=== PATIENT | male | born 1980 | race Caucasian/White ===

== ENCOUNTER → 2018-04-10 | Outpatient (CLI) | payer OTHER ==
[~2018-04-10] MED LIST: BACTRIM DS 8001 TA1 PO; CLINDAMYCIN150 MG PO; CYCLOBENZAPRINE10 MG PO; ELIMITE5% TP; FLEXERIL10 MG PO; IBU800 MG PO; KEFLEX500 MG PO; MOTRIN800 MG PO; NKHM; NO DAILY MEDS; TRAMADOL HCL50 MG PO; VICODIN 5-3001 EACH PO; VICODIN 5/500 505 MG PO; VICODIN ES 7501 TAB PO
[2018-04-10 12:55] LABS: EOS # 0.1 10*3/uL (0.0-0.4); EOS % 3.1 % (1.0-4.0); HEMATOCRIT 45.5 % (42.0-52.0); HEMOGLOBIN 15.5 g/dl (14.0-18.0); LYMPH # 1.6 10*3/uL (1.3-4.4); LYMPH % 37.3 % (27.0-41.0); MEAN CELL VOLUME 103.2 fl (80.0-94.0); MEAN CORPUSCULAR HGB 35.1 pg (27.0-31.0); MEAN CORPUSCULAR HGB CONC 34.1 g/dl (33.0-37.0); MEAN PLATELET VOLUME 8.9 fl (9.6-12.3); MONO # 0.4 10*3/uL (0.1-1.0); MONO % 9.1 % (3.0-9.0); NEUT # 2.1 10*3/uL (2.3-7.9); NEUT % 49.3 % (47.0-73.0); PLATELET COUNT AUTOMATED 201 10*3/uL (130-400); RED BLOOD COUNT 4.41 10*6/uL (4.50-5.90); RED CELL DISTRI WIDTH 11.7 % (0-14.5); WHITE BLOOD COUNT 4.2 10*3/uL (4.8-10.8)
[2018-04-10 13:27] LABS: ALBUMIN 3.6 gm/dl (3.1-4.5); ALKALINE PHOSPHATASE 112 U/L (45-117); BUN 3 mg/dl (7-24); CHLORIDE 108 mmol/L (98-107); CREATININE 0.73 mg/dL (0.70-1.30); POTASSIUM 4.7 mmol/L (3.5-5.1); SGOT/AST 118 IU/L (3-35); SODIUM 144 mmol/L (136-145); TOTAL PROTEIN 7.3 gm/dL (6.4-8.2)
[2018-04-10 13:35] LABS: SGPT/ALT 79 U/L (12-78)
[2018-04-12 05:12] LABS: HEPATITIS B SURFACE AG Negative (Negative); HEPATITIS C VIRUS ANTIBODY <0.1 s/co (0.0-0.9)
== END | disposition home or self-care (01) ==
LOC: LAB 12:31
PROVIDERS: Nurse Practitioner Primary Care
DX: F10.20 Alcohol dependence, uncomplicated (principal); R03.0 Elevated blood-pressure reading, without diagnosis of hypertension

== ENCOUNTER 2018-04-19 09:16 | Emergency (ER) | payer OTHER ==
[~2018-04-19] VITALS: Ht 187.9 cm; Wt 80.7 kg
[2018-04-19] MEDS ORDERED: NAPROSYN500 MG PO (11:07)
[2018-04-19] MEDS ORDERED: NORCO 5-325 TA1 EACH PO (11:07)
== END 2018-04-19 11:11 | disposition home or self-care (01) ==
LOC: ED 09:16
DX: S42.034A Nondisplaced fracture of lateral end of right clavicle, initial encounter for closed fracture (principal); R03.0 Elevated blood-pressure reading, without diagnosis of hypertension; W23.0XXA Caught, crushed, jammed, or pinched between moving objects, initial encounter; Y93.89 Activity, other specified; Y92.89 Other specified places as the place of occurrence of the external cause; Y99.9 Unspecified external cause status

== ENCOUNTER → 2018-04-24 | Outpatient (CLI) | payer OTHER ==
[~2018-04-24] MED LIST changes: +NAPROSYN500 MG PO; +NORCO 5-325 TA1 EACH PO
== END | disposition home or self-care (01) ==
LOC: RAD 14:24
DX: M25.511 Pain in right shoulder (principal)

== ENCOUNTER → 2018-05-16 | Outpatient (CLI) | payer OTHER | END | disposition home or self-care (01) | LOC: RAD 12:39 | DX: Z47.89 Encounter for other orthopedic aftercare (principal); S42.001D Fracture of unspecified part of right clavicle, subsequent encounter for fracture with routine healing; X58.XXXD Exposure to other specified factors, subsequent encounter ==

== ENCOUNTER 2020-08-19 09:05 | Inpatient (IN) | payer SELFPAY ==
[~2020-08-19] VITALS: Ht 185.4 cm; Wt 90.8 kg
[2020-08-19 09:16] VITALS: BP 135/98
[2020-08-19 10:02] LABS: BASO % 0.3 % (0.0-1.0); EOS # 0.2 10*3/uL (0.0-0.4); EOS % 1.9 % (1.0-4.0); HEMATOCRIT 43.8 % (42.0-52.0); LYMPH # 1.5 10*3/uL (1.3-4.4); LYMPH % 16.4 % (27.0-41.0); MEAN CORPUSCULAR HGB 34.2 pg (27.0-31.0); MEAN CORPUSCULAR HGB CONC 34.2 g/dl (33.0-37.0); MONO # 0.7 10*3/uL (0.1-1.0); MONO % 8.3 % (3.0-9.0); NEUT # 6.5 10*3/uL (2.3-7.9); PLATELET COUNT AUTOMATED 206 10*3/uL (130-400); RED BLOOD COUNT 4.38 10*6/uL (4.50-5.90); RED CELL DISTRI WIDTH 11.8 % (0-14.5); WHITE BLOOD COUNT 8.9 10*3/uL (4.8-10.8)
[2020-08-19 10:15] LABS: ACT PARTIAL THROMBO TIME 30.5 SECONDS (20.0-32.1); INTERNATIONAL NORM RATIO 0.9 (2.0-3.5)
[2020-08-19 10:16] LABS: ALBUMIN 3.6 gm/dl (3.1-4.5); ALKALINE PHOSPHATASE 109 U/L (45-117); BUN 7 mg/dl (7-24); CHLORIDE 108 mmol/L (98-107); CREATININE 0.82 mg/dL (0.70-1.30); LIPASE 33 U/L (73-393); POTASSIUM 3.4 mmol/L (3.5-5.1); SGOT/AST 22 IU/L (3-35); SGPT/ALT 35 U/L (12-78); SODIUM 137 mmol/L (136-145); TOTAL PROTEIN 7.5 gm/dL (6.4-8.2)
--- NOTE | 2020-08-19 13:45 | NUR ---
MS Time: 1344 A 40 year old MALE admitted to 5E under services of KENNETH SAMAYOA DO Pt. arrived via ambulatory from ER. Chief complaint: ABD PAIN. GOPI [place].
--- NOTE | 2020-08-19 13:52 | NUR ---
100MCG OF FENTANYL GIVEN TO GOPI BEAVER UPON PATIENT ARRIVAL TO THE FLOOR. REPORT GIVEN TO GOPI BEAVER.
--- NOTE | 2020-08-19 13:52 | NUR ---
IV FENTANYL GIVEN PER ORDER FOR C/O LLQ PAIN. RATES PAIN 06/28. WILL MONITOR EFFECTIVENESS.
[2020-08-19 14:12] VITALS: BP 158/100
--- NOTE | 2020-08-19 14:22 | NUR ---
NOTIFIED REGARDING ELEVATED BP. AWAITING PHYSICIAN ORDERS.
--- NOTE | 2020-08-19 14:35 | NUR ---
NOTIFIED OF CONSULT.
--- NOTE | 2020-08-19 14:52 | NUR ---
PAIN BEING RELIEVED PER PT. WILL CONTINUE TO MONITOR.
[2020-08-19 16:00] VITALS: BP 156/98
--- NOTE | 2020-08-19 17:20 | NUR ---
PT MEDICATED WITH PO NORCO PER PRN ORDER FOR C/O LLQ PAIN. RATES PAIN 04/28. WILL MONITOR EFFECTIVENESS.
--- NOTE | 2020-08-19 18:20 | NUR ---
NORCO RELIEVING PAIN. PT TOLERATED SOFT DIET WITHOUT ANY DIFFICULTY. WILL CONTINUE TO MONITOR. CALL LIGHT WITHIN REACH.
--- NOTE | 2020-08-19 19:57 | NUR ---
PT SEEN AND ASSESSED. PT STATES HE IS HAVING PAIN TO HIS LLQ 5/10 AND AT THIS TIME DOES NOT REQUIRE MEDICATION. REVIEWED MEDICATIONS AND PLAN OF CARE. PT VERBALIZES UNDERSTANDING AND STATES HE HAS NO QUESTIONS REGARDING CARE AT THIS TIME. WILL CONT TO FOLLOW UP.
[2020-08-19 20:00] VITALS: BP 141/104
[2020-08-19 21:30] VITALS: BP 130/80
--- NOTE | 2020-08-19 21:30 | NUR ---
PT REQUESTING PAIN MEDICATION FOR LLQ PAIN 05/28. PRN PAIN MEDICATION ADMINISTERED. PT INSTRUCTED ON NON PHARMACOLOGICAL MEASURES AND VERBALIZES UNDERSTANDING OF EDUCATION. WILL REASSESS.
--- NOTE | 2020-08-19 22:30 | NUR ---
PT RESTING QUIETLY IN BED. PT STATES PAIN IS BETTER CONTROLLED AND RATES PAIN TO LLQ 4/10 AND IS TOLERABLE. WILL CONTINUE TO REASSESS.
[2020-08-20] VITALS: BP 130/92
--- NOTE | 2020-08-20 04:58 | NUR ---
PT RESTING QUIETLY IN BED WITH EYES CLOSED. PT GIVEN SCHEDULED ATIVAN ORDERED. AT PRESENT PT DENIES ANY C/O PAIN AT THIS TIME,
--- NOTE | 2020-08-20 05:47 | NUR ---
PT REQUEST FOR PRN PAIN MEDICATION FOR PAIN RATING 8/10 TO LLQ. MEDICATION GIVEN. WILL REASSESS.
[2020-08-20 06:27] LABS: BASO % 0.4 % (0.0-1.0); EOS # 0.2 10*3/uL (0.0-0.4); EOS % 3.8 % (1.0-4.0); HEMATOCRIT 37.6 % (42.0-52.0); LYMPH # 1.1 10*3/uL (1.3-4.4); LYMPH % 21.2 % (27.0-41.0); MEAN CORPUSCULAR HGB 34.5 pg (27.0-31.0); MEAN CORPUSCULAR HGB CONC 33.5 g/dl (33.0-37.0); MEAN PLATELET VOLUME 9.4 fl (9.6-12.3); MONO # 0.5 10*3/uL (0.1-1.0); MONO % 8.7 % (3.0-9.0); NEUT # 3.4 10*3/uL (2.3-7.9); NEUT % 65.5 % (47.0-73.0); PLATELET COUNT AUTOMATED 172 10*3/uL (130-400); RED BLOOD COUNT 3.65 10*6/uL (4.50-5.90); RED CELL DISTRI WIDTH 11.8 % (0-14.5); WHITE BLOOD COUNT 5.2 10*3/uL (4.8-10.8)
[2020-08-20 07:00] LABS: ALBUMIN 2.8 gm/dl (3.1-4.5); BUN 5 mg/dl (7-24); CHLORIDE 114 mmol/L (98-107); CHOLESTEROL 168 mg/dL (<200); CREATININE 0.77 mg/dL (0.70-1.30); POTASSIUM 3.6 mmol/L (3.5-5.1); SGOT/AST 20 IU/L (3-35); SGPT/ALT 23 U/L (12-78); SODIUM 143 mmol/L (136-145); TOTAL PROTEIN 6.3 gm/dL (6.4-8.2); TRIGLYCERIDES 141 mg/dl (<150); VLDL CHOLESTEROL 28 mg/dL (6-40)
[2020-08-20 07:07] LABS: ALKALINE PHOSPHATASE 80 U/L (45-117); HDL CHOLESTEROL 52 mg/dl (40-60); LDL CHOLESTEROL 88 mg/dL (9-159)
[2020-08-20 08:00] VITALS: BP 140/100
--- NOTE | 2020-08-20 10:43 | NUR ---
PT C/O 6/10 L SIDE ABD PAIN AT THIS TIME AND REQUESTING MEDICATION. MEDICATED WITH NORCO PER ORDER, WILL MONITOR FOR EFFECTIVENESS.
--- NOTE | 2020-08-20 11:00 | NUR ---
Discharge instructions reviewed with patient/family. Patient receptive and verbalizes understanding. Follow-up care arranged. Written instructions given to patient/family. Pt ambulatory off floor. Belongings obtained from security. Patient picked up by [facility] and transported to their facility. ARIANNA BARRIENTOS
[2020-08-20] MEDS ORDERED: FLAGYL500 MG PO (11:37)
[2020-08-20] MEDS ORDERED: CIPRO500 MG PO (11:37)
--- NOTE | 2020-08-20 12:05 | NUR ---
Photostat Operator in to talk to patient. Patient states lives at HOME with DENI. There are 14 steps in the home. Physician: STEPHEN BARRON [facility]acy: [facility] Home health services: NON Patient's level of ADLs: INDEPENDENT Patient has working utilities: YES DME: NONE Follow-up physician's appointment after d/c: WILL BE MADE BY HOSPITALIST NURSE DIRECTOR ON DISCHARGE Does patient want to access PORTAL?: NO Discharge plan PT LIVES AT HOME WITH HIS FIANCE AND IS INDEPENDENT IN HIS CARE. DENIES HE WILL HAVE ANY NEEDS ON DISCHARGE. PLANS TO RETURN HOME WHEN MEDICALLY STABLE. WILL CONTINUE TO FOLLOW. STATES HE WILL HAVE A RIDE HOME.. RINA JAMES
[2020-08-20] MEDS ORDERED: METAMUCIL PACK3.4 GM PO (12:12)
[2020-08-20] MEDS ORDERED: COLACE100 MG PO (12:12)
[2020-08-20] MEDS ORDERED: NORVASC5 MG PO (12:14)
[2020-08-20 12:24] VITALS: BP 136/88
[2020-08-20] MEDS ORDERED: NORCO 5-325 TA1 EACH PO ×2 (12:30→12:38)
--- NOTE | 2020-08-20 13:30 | NUR ---
Discharge instructions reviewed with patient/family. Patient receptive and verbalizes understanding. Follow-up care arranged. Written instructions given to patient/family. [place] DISCONTINUED. PRESCRIPTION GIVEN. PT AMBULATORY OFF FLOOR. ARIANNA BARRIENTOS
== END 2020-08-20 13:30 | disposition home or self-care (01) | DRG 379 ==
LOC: ED 09:05 → 5E 12:37 → EDHOLD 12:37 → 5E 12:42
PROVIDERS: Emergency Medicine; Internal Medicine; ADMIT Internal Medicine; ATTEND Internal Medicine
DX: K57.33 Diverticulitis of large intestine without perforation or abscess with bleeding (principal); K76.0 Fatty (change of) liver, not elsewhere classified; F10.20 Alcohol dependence, uncomplicated; E87.6 Hypokalemia; F17.210 Nicotine dependence, cigarettes, uncomplicated; R03.0 Elevated blood-pressure reading, without diagnosis of hypertension; E87.8 Other disorders of electrolyte and fluid balance, not elsewhere classified; R73.9 Hyperglycemia, unspecified; E80.6 Other disorders of bilirubin metabolism; E66.3 Overweight; Z83.3 Family history of diabetes mellitus; Z68.26 Body mass index [BMI] 26.0-26.9, adult

== ENCOUNTER 2020-11-12 14:14 | Inpatient (IN) | payer OTHER ==
[~2020-11-12] VITALS: Ht 185.4 cm; Wt 99.4 kg
[~2020-11-12 14:14] MED LIST changes: +CIPRO500 MG PO; +COLACE100 MG PO; +FLAGYL500 MG PO; +METAMUCIL PACK3.4 GM PO; +NORVASC5 MG PO
[2020-11-12 14:23] VITALS: BP 145/102
[2020-11-12 15:00] LABS: BASO % 0.4 % (0.0-1.0); EOS # 0.2 10*3/uL (0.0-0.4); EOS % 2.8 % (1.0-4.0); HEMATOCRIT 40.4 % (42.0-52.0); LYMPH # 1.4 10*3/uL (1.3-4.4); LYMPH % 16.6 % (27.0-41.0); MEAN CELL VOLUME 98.8 fl (80.0-94.0); MEAN CORPUSCULAR HGB 33.5 pg (27.0-31.0); MEAN CORPUSCULAR HGB CONC 33.9 g/dl (33.0-37.0); MONO # 0.6 10*3/uL (0.1-1.0); MONO % 7.4 % (3.0-9.0); NEUT % 72.6 % (47.0-73.0); PLATELET COUNT AUTOMATED 232 10*3/uL (130-400); RED BLOOD COUNT 4.09 10*6/uL (4.50-5.90); RED CELL DISTRI WIDTH 12.6 % (0-14.5); WHITE BLOOD COUNT 8.3 10*3/uL (4.8-10.8)
[2020-11-12 15:13] LABS: ACT PARTIAL THROMBO TIME 30.9 SECONDS (20.0-32.1)
[2020-11-12 15:17] LABS: ALBUMIN 3.2 gm/dl (3.1-4.5); ALKALINE PHOSPHATASE 125 U/L (45-117); BUN 7 mg/dl (7-24); CHLORIDE 108 mmol/L (98-107); CREATININE 0.88 mg/dL (0.70-1.30); LIPASE 55 U/L (73-393); POTASSIUM 3.5 mmol/L (3.5-5.1); SGOT/AST 16 IU/L (3-35); SGPT/ALT 22 U/L (12-78); SODIUM 139 mmol/L (136-145); TOTAL PROTEIN 7.4 gm/dL (6.4-8.2)
--- NOTE | 2020-11-12 15:28 | NUR ---
PT STATED HE HAS HAD MINIMAL RELIEF SINCE GETTING PAIN MEDICATION. WILL CONTINUE TO MONITOR.
[2020-11-12 15:32] LABS: BILIRUBIN Negative (Negative); BLOOD Trace-Intact (Negative); CLARITY Cloudy (Clear); COLOR Yellow (Yellow); GLUCOSE Negative (Negative); KETONE Trace (Negative); LEUKO ESTERASE Negative (Negative); NITRITE Negative (Negative); SPECIFIC GRAVITY 1.025 (1.001-1.030)
[2020-11-12 15:44] LABS: BACTERIA TRACE; EPITHELIAL CELLS 0-2; MUCOUS TRACE; WBC 0-2 wbc/hpf (0-5)
[2020-11-12 15:49] VITALS: BP 140/93
--- NOTE | 2020-11-12 16:02 | NUR ---
I.V INFILTRATED, STARTED A NEW ONE.
[2020-11-12 16:13] VITALS: BP 150/96
--- NOTE | 2020-11-12 17:04 | NUR ---
PT STATED THAT HIS PAIN WAS BETTER. NO CUURENT COMPLAINTS.
--- NOTE | 2020-11-12 18:34 | NUR ---
PT STATED PAIN LEVEL WAS BETTER.
--- NOTE | 2020-11-12 20:40 | NUR ---
PATIENT MEDICATED PER EMAR FOR PAIN. CONT PULSE OX IN PLACE.
[2020-11-12 20:54] VITALS: BP 148/70
[2020-11-12 21:04] VITALS: BP 140/97
--- NOTE | 2020-11-12 21:06 | NUR ---
PT STATED PAIN IS GOOD, NO OTHER COMPLAINTS AT THIS TIME.
[2020-11-12 21:50] VITALS: BP 140/92
--- NOTE | 2020-11-12 21:50 | NUR ---
A 40, admitted to , under the services of ANDREY De La Rosa DO with a diagnosis of HEMATURIA, GI BLEED, COLITIS. Chief complaint is ABDOMINAL PAIN. Patient arrived via wheel chair from ER. Monitor applied. Initial assessment completed. Vital signs taken and recorded. ANDREY DE LA ROSA DO notified of admission to the unit. Orders received. See assessment for past medical history, medications and allergies. Patient and/or family oriented to unit. [facility] visitation policy reviewed. Clothing/patient valuable form completed. ZARIA ECHOLS
--- NOTE | 2020-11-12 22:34 | NUR ---
PT GIVEN NORCO WITH A SIP OF WATER, PER DR ORDERS, FOR C/O ABDOMINAL PAIN. WILL MONITOR FOR EFFECTIVENESS. CALL LIGHT IN REACH.
--- NOTE | 2020-11-12 23:34 | NUR ---
GELY EFFECTIVE PER PT.
[2020-11-13] VITALS: BP 126/76
--- NOTE | 2020-11-13 00:43 | NUR ---
PT GIVEN MORPHINE 2 MG VIA IVP FOR C/O ABDOMINAL PAIN. RATES PAIN 8/10. WILL MONITOR FOR EFFECTIVENESS. CALL LIGHT IN REACH.
--- NOTE | 2020-11-13 05:24 | NUR ---
PT GIVEN MORPHINE 2 MG VIA IVP AT THIS TIME FOR C/O PAIN TO ABDOMEN. WILL MONITOR FOR EFFECTIVENESS. CALL LIGHT IN REACH.
--- NOTE | 2020-11-13 06:24 | NUR ---
MORPHINE EFFECTIVE PER PT.
[2020-11-13 07:24] LABS: BASO % 0.3 % (0.0-1.0); EOS # 0.3 10*3/uL (0.0-0.4); EOS % 3.7 % (1.0-4.0); LYMPH # 1.2 10*3/uL (1.3-4.4); MEAN CELL VOLUME 101.3 fl (80.0-94.0); MEAN CORPUSCULAR HGB 33.4 pg (27.0-31.0); MEAN PLATELET VOLUME 9.2 fl (9.6-12.3); MONO # 0.5 10*3/uL (0.1-1.0); MONO % 7.2 % (3.0-9.0); NEUT # 5.4 10*3/uL (2.3-7.9); NEUT % 72.5 % (47.0-73.0); PLATELET COUNT AUTOMATED 203 10*3/uL (130-400); RED BLOOD COUNT 3.95 10*6/uL (4.50-5.90); RED CELL DISTRI WIDTH 12.7 % (0-14.5); WHITE BLOOD COUNT 7.5 10*3/uL (4.8-10.8)
[2020-11-13 07:27] LABS: ALKALINE PHOSPHATASE 107 U/L (45-117); BUN 6 mg/dl (7-24); CHLORIDE 109 mmol/L (98-107); CREATININE 0.81 mg/dL (0.70-1.30); POTASSIUM 3.7 mmol/L (3.5-5.1); SGOT/AST 20 IU/L (3-35); SGPT/ALT 18 U/L (12-78); SODIUM 138 mmol/L (136-145); TOTAL PROTEIN 7.1 gm/dL (6.4-8.2)
[2020-11-13 08:00] VITALS: BP 141/93
--- NOTE | 2020-11-13 08:55 | NUR ---
PER DR.NOVOBILISKY CEE TO GIVE ATIVAN AND NORCO WITH A SIP OF WATER.
--- NOTE | 2020-11-13 10:23 | NUR ---
Nurses Supervisor in to talk to patient in Room 517-1 Patient states that he Lives at Home with his Fiance There are 13 Steps in the Home Physician: Caden Cabello [facility]acy: [facility] Home health services: None Patient's level of ADLs: Independt, Still Drives, Voiced No needs Patient has working utilities: Yes all are working DME: None Follow-up physician's appointment after d/c: Per Hospitalist Nurse Director Does patient want to access PORTAL?: No Discharge plan discussed with Pt, at this time Discharge Plan is for Pt. to return home with No Needs. Pt. Fiance will provide transportation needs. ADARSH ADAIR LPN
[2020-11-13 12:00] VITALS: BP 152/87
[2020-11-13 16:00] VITALS: BP 158/82
--- NOTE | 2020-11-13 19:39 | NUR ---
24 HR chart check completed.
[2020-11-13 20:00] VITALS: BP 135/91
[2020-11-14] VITALS: BP 137/90
--- NOTE | 2020-11-14 04:08 | NUR ---
MEDICATED WITH PRN NORCO FOR C/O PAIN IN ABDOMEN RATED 6/10 ON A 0/10 PAIN SCALE
--- NOTE | 2020-11-14 06:14 | NUR ---
PATIENT CAN HAVE ICE CHIPS PER DR YODER
[2020-11-14 07:50] LABS: BASO % 0.3 % (0.0-1.0); EOS # 0.3 10*3/uL (0.0-0.4); LYMPH % 14.7 % (27.0-41.0); MEAN CELL VOLUME 101.4 fl (80.0-94.0); MEAN CORPUSCULAR HGB 33.7 pg (27.0-31.0); MEAN CORPUSCULAR HGB CONC 33.2 g/dl (33.0-37.0); MEAN PLATELET VOLUME 9.1 fl (9.6-12.3); MONO # 0.6 10*3/uL (0.1-1.0); MONO % 8.7 % (3.0-9.0); NEUT # 4.7 10*3/uL (2.3-7.9); PLATELET COUNT AUTOMATED 206 10*3/uL (130-400); RED BLOOD COUNT 3.65 10*6/uL (4.50-5.90); RED CELL DISTRI WIDTH 12.7 % (0-14.5); WHITE BLOOD COUNT 6.5 10*3/uL (4.8-10.8)
[2020-11-14 08:00] VITALS: BP 152/92
[2020-11-14 12:00] VITALS: BP 139/86
--- NOTE | 2020-11-14 13:36 | NUR ---
24 HR CHART CHECK COMPLETE.
[2020-11-14 16:00] VITALS: BP 150/92
[2020-11-14 20:37] VITALS: BP 147/97
[2020-11-15] VITALS: BP 132/97
--- NOTE | 2020-11-15 00:08 | NUR ---
MEDICATED WITH PRN TYLENOL FOR ELEVATED TEMP
--- NOTE | 2020-11-15 06:00 | NUR ---
MEDICATED WITH PRN NORCO FOR C/O ABD PAIN
[2020-11-15 06:38] LABS: BASO % 0.3 % (0.0-1.0); EOS # 0.3 10*3/uL (0.0-0.4); EOS % 5.7 % (1.0-4.0); HEMATOCRIT 34.9 % (42.0-52.0); LYMPH % 17.5 % (27.0-41.0); MEAN CELL VOLUME 99.4 fl (80.0-94.0); MEAN CORPUSCULAR HGB 33.9 pg (27.0-31.0); MEAN CORPUSCULAR HGB CONC 34.1 g/dl (33.0-37.0); MEAN PLATELET VOLUME 8.9 fl (9.6-12.3); MONO # 0.7 10*3/uL (0.1-1.0); MONO % 11.7 % (3.0-9.0); NEUT # 3.8 10*3/uL (2.3-7.9); NEUT % 64.6 % (47.0-73.0); PLATELET COUNT AUTOMATED 220 10*3/uL (130-400); RED BLOOD COUNT 3.51 10*6/uL (4.50-5.90); RED CELL DISTRI WIDTH 12.6 % (0-14.5); WHITE BLOOD COUNT 5.8 10*3/uL (4.8-10.8)
[2020-11-15 07:10] LABS: ALBUMIN 2.6 gm/dl (3.1-4.5); ALKALINE PHOSPHATASE 79 U/L (45-117); BUN 5 mg/dl (7-24); CHLORIDE 109 mmol/L (98-107); CREATININE 0.74 mg/dL (0.70-1.30); POTASSIUM 3.3 mmol/L (3.5-5.1); SGOT/AST 14 IU/L (3-35); SGPT/ALT 15 U/L (12-78); SODIUM 142 mmol/L (136-145); TOTAL PROTEIN 6.5 gm/dL (6.4-8.2)
[2020-11-15 07:13] LABS: ACT PARTIAL THROMBO TIME 33.4 SECONDS (20.0-32.1); INTERNATIONAL NORM RATIO 1.1 (2.0-3.5)
[2020-11-15 08:00] VITALS: BP 126/74
--- NOTE | 2020-11-15 08:20 | NUR ---
RADIOLOGY CALLED FLOOR AND STATES THAT DR SPARKS IS OUT TODAY. CT DRAINAGE TO BE RESCHEDULED FOR TOMORROW.
--- NOTE | 2020-11-15 08:39 | NUR ---
DR ZUÑIGA NOTIFIED OF DR SPARKS BEING OUT TODAY. HE STATES TO SEE IF DR SPARKS CAN CALL HIM. OK FOR FULL LIQUID DIET. CALLED RADIOLOGY AND MESSAGE GAVE.
--- NOTE | 2020-11-15 10:19 | NUR ---
PT REQUESTED AND WAS MEDICATED WITH NORCO FOR C/O ABDOMINAL PAIN.
--- NOTE | 2020-11-15 10:43 | NUR ---
RADIOLOGY CALLED AND STATES DR SPARKS SPOKE WITH DR ZUÑIGA. DRAINAGE IS SCHEDULED FOR TOMORROW.
--- NOTE | 2020-11-15 10:44 | NUR ---
PAIN MEDICATION EFFECTIVE PER PT.
--- NOTE | 2020-11-15 14:05 | NUR ---
PT REQUESTED AND WAS MEDICATED WITH ABDOMINAL PAIN. CALL LIGHT IN REACH
--- NOTE | 2020-11-15 14:39 | NUR ---
MEDICATION EFFECTIVE PER PT. CALL LIGHT IN REACH.
--- NOTE | 2020-11-15 14:44 | NUR ---
Discharge Plan remains unchanged. Pt. states he will return home with No needs.
[2020-11-15 16:00] VITALS: BP 138/99
--- NOTE | 2020-11-15 18:28 | NUR ---
PT REQUESTED AND WAS MEDICATED WITH NORCO FOR C/O ABDOMINAL PAIN.
[2020-11-15 20:00] VITALS: BP 142/94
[2020-11-16] VITALS: BP 150/90
[2020-11-16 08:00] VITALS: BP 136/83
[2020-11-16 08:24] LABS: BASO % 0.7 % (0.0-1.0); EOS # 0.4 10*3/uL (0.0-0.4); EOS % 6.4 % (1.0-4.0); HEMATOCRIT 38.2 % (42.0-52.0); LYMPH # 1.5 10*3/uL (1.3-4.4); LYMPH % 26.9 % (27.0-41.0); MEAN CELL VOLUME 99.5 fl (80.0-94.0); MEAN CORPUSCULAR HGB 33.3 pg (27.0-31.0); MEAN CORPUSCULAR HGB CONC 33.5 g/dl (33.0-37.0); MEAN PLATELET VOLUME 9.4 fl (9.6-12.3); MONO # 0.6 10*3/uL (0.1-1.0); MONO % 10.8 % (3.0-9.0); NEUT % 54.8 % (47.0-73.0); PLATELET COUNT AUTOMATED 284 10*3/uL (130-400); RED BLOOD COUNT 3.84 10*6/uL (4.50-5.90); RED CELL DISTRI WIDTH 12.7 % (0-14.5); WHITE BLOOD COUNT 5.5 10*3/uL (4.8-10.8)
[2020-11-16 08:34] LABS: BUN 4 mg/dl (7-24); CHLORIDE 111 mmol/L (98-107); CREATININE 0.84 mg/dL (0.70-1.30); POTASSIUM 3.8 mmol/L (3.5-5.1); SODIUM 144 mmol/L (136-145)
--- NOTE | 2020-11-16 10:03 | NUR ---
PT REQUESTED AND WAS MEDICATED WITH MORPHINE IV FOR C/O ABDOMINAL PAIN. CALL LIGHT IN REACH.
--- NOTE | 2020-11-16 11:00 | NUR ---
MEDICATION EFFECTIVE PER PT
[2020-11-16 12:00] VITALS: BP 130/85
[2020-11-16] MEDS ORDERED: AUGMENTIN 875875 MG PO (15:50)
[2020-11-16] MEDS ORDERED: AMLODIPINE BESYL5 MG PO (15:50)
[2020-11-16 16:00] VITALS: BP 125/85
[2020-11-16] MEDS ORDERED: HYDROCODONE-AC1 EAC1 PO (16:38)
--- NOTE | 2020-11-16 17:06 | NUR ---
Discharge instructions reviewed with patient/family. Patient receptive and verbalizes understanding. Follow-up care arranged. Written instructions given to patient/family. KAITLYNN WILSON
== END 2020-11-16 17:06 | disposition home or self-care (01) | DRG 244 ==
LOC: ED 14:14 → EDHOLD 19:25 → 5E 19:25
PROVIDERS: Hospitalist; Internal Medicine; Nurse Practitioner Family; ADMIT Student in an Organized Health Care Education/Training Program; ATTEND Student in an Organized Health Care Education/Training Program
DX: K57.21 Diverticulitis of large intestine with perforation and abscess with bleeding (principal); K52.9 Noninfective gastroenteritis and colitis, unspecified; D53.9 Nutritional anemia, unspecified; E44.0 Moderate protein-calorie malnutrition; R31.29 Other microscopic hematuria; R73.9 Hyperglycemia, unspecified; E87.8 Other disorders of electrolyte and fluid balance, not elsewhere classified; F10.29 Alcohol dependence with unspecified alcohol-induced disorder; Z66 Do not resuscitate; Z51.5 Encounter for palliative care; F17.219 Nicotine dependence, cigarettes, with unspecified nicotine-induced disorders; Z71.6 Tobacco abuse counseling; Z83.3 Family history of diabetes mellitus; Z68.28 Body mass index [BMI] 28.0-28.9, adult

== ENCOUNTER 2021-06-29 14:52 | Inpatient (IN) | payer OTHER ==
[~2021-06-29] VITALS: Ht 185.4 cm
[~2021-06-29 14:52] MED LIST changes: +AMLODIPINE BESYL5 MG PO; +AUGMENTIN 875875 MG PO; +HYDROCODONE-AC1 EAC1 PO
[2021-06-29 15:00] VITALS: BP 148/100
[2021-06-29 18:00] LABS: BASO % 0.3 % (0.0-1.0); EOS # 0.2 10*3/uL (0.0-0.4); EOS % 2.7 % (1.0-4.0); HEMATOCRIT 41.9 % (42.0-52.0); LYMPH # 1.8 10*3/uL (1.3-4.4); LYMPH % 27.1 % (27.0-41.0); MEAN CELL VOLUME 98.6 fl (80.0-94.0); MEAN CORPUSCULAR HGB 34.4 pg (27.0-31.0); MEAN CORPUSCULAR HGB CONC 34.8 g/dl (33.0-37.0); MEAN PLATELET VOLUME 8.8 fl (9.6-12.3); MONO # 0.6 10*3/uL (0.1-1.0); MONO % 8.3 % (3.0-9.0); NEUT # 4.1 10*3/uL (2.3-7.9); NEUT % 61.4 % (47.0-73.0); PLATELET COUNT AUTOMATED 211 10*3/uL (130-400); RED BLOOD COUNT 4.25 10*6/uL (4.50-5.90); RED CELL DISTRI WIDTH 12.7 % (0-14.5); WHITE BLOOD COUNT 6.6 10*3/uL (4.8-10.8)
[2021-06-29 18:16] LABS: ALBUMIN 3.7 gm/dl (3.1-4.5); ALKALINE PHOSPHATASE 113 U/L (45-117); BUN 9 mg/dl (7-24); CHLORIDE 111 mmol/L (98-107); CREATININE 0.93 mg/dL (0.70-1.30); LIPASE 92 U/L (73-393); POTASSIUM 3.8 mmol/L (3.5-5.1); SGOT/AST 43 IU/L (3-35); SGPT/ALT 46 U/L (12-78); SODIUM 142 mmol/L (136-145); TOTAL PROTEIN 7.3 gm/dL (6.4-8.2)
[2021-06-29 19:33] VITALS: BP 153/70
[2021-06-29 22:26] LABS: BILIRUBIN Negative (Negative); BLOOD Trace-Intact (Negative); CLARITY Clear (Clear); COLOR Yellow (Yellow); GLUCOSE Negative (Negative); KETONE Trace (Negative); LEUKO ESTERASE 1+ (Negative); NITRITE Positive (Negative); PH 5.5 (4.5-8.0); SPECIFIC GRAVITY >= 1.030 (1.001-1.030)
[2021-06-29 22:35] VITALS: BP 145/69
[2021-06-29 22:38] LABS: BACTERIA 1+; WBC 16-20 wbc/hpf (0-5)
[2021-06-30 05:59] LABS: ALBUMIN 3.1 gm/dl (3.1-4.5); ALKALINE PHOSPHATASE 96 U/L (45-117); BUN 8 mg/dl (7-24); CHLORIDE 113 mmol/L (98-107); CREATININE 0.88 mg/dL (0.70-1.30); FREE T4 0.69 ng/dl (0.76-1.46); POTASSIUM 3.4 mmol/L (3.5-5.1); SGOT/AST 29 IU/L (3-35); SGPT/ALT 34 U/L (12-78); SODIUM 145 mmol/L (136-145); TOTAL PROTEIN 6.1 gm/dL (6.4-8.2)
[2021-06-30 06:08] LABS: BASO % 0.5 % (0.0-1.0); EOS # 0.3 10*3/uL (0.0-0.4); EOS % 4.4 % (1.0-4.0); HEMATOCRIT 39.9 % (42.0-52.0); LYMPH # 1.5 10*3/uL (1.3-4.4); LYMPH % 25.8 % (27.0-41.0); MEAN CORPUSCULAR HGB 34.4 pg (27.0-31.0); MEAN CORPUSCULAR HGB CONC 33.8 g/dl (33.0-37.0); MEAN PLATELET VOLUME 9.3 fl (9.6-12.3); MONO # 0.5 10*3/uL (0.1-1.0); MONO % 9.2 % (3.0-9.0); NEUT # 3.4 10*3/uL (2.3-7.9); NEUT % 59.7 % (47.0-73.0); PLATELET COUNT AUTOMATED 188 10*3/uL (130-400); RED BLOOD COUNT 3.92 10*6/uL (4.50-5.90); RED CELL DISTRI WIDTH 12.9 % (0-14.5); WHITE BLOOD COUNT 5.7 10*3/uL (4.8-10.8)
[2021-06-30 06:16] VITALS: BP 138/95
[2021-06-30 06:30] LABS: MEAN CELL VOLUME 101.8 fl (80.0-94.0)
[2021-06-30 07:45] LABS: VITAMIN D, 25-HYDROXY 10.1 ng/mL (30-100)
[2021-06-30 13:14] VITALS: BP 136/79
[2021-06-30] MEDS ORDERED: AUGMENTIN 875875 MG PO (14:28)
== END 2021-06-30 14:50 | disposition home or self-care (01) | DRG 253 ==
LOC: ED 14:52 → EDHOLD 20:49
PROVIDERS: Internal Medicine; Physician Assistant; ADMIT Student in an Organized Health Care Education/Training Program; ATTEND Student in an Organized Health Care Education/Training Program
DX: K92.2 Gastrointestinal hemorrhage, unspecified (principal); N32.1 Vesicointestinal fistula; N39.0 Urinary tract infection, site not specified; K76.0 Fatty (change of) liver, not elsewhere classified; F17.210 Nicotine dependence, cigarettes, uncomplicated; E87.8 Other disorders of electrolyte and fluid balance, not elsewhere classified; E83.41 Hypermagnesemia; F10.239 Alcohol dependence with withdrawal, unspecified; Y90.9 Presence of alcohol in blood, level not specified; D53.9 Nutritional anemia, unspecified; E87.6 Hypokalemia; R74.01 Elevation of levels of liver transaminase levels; R31.29 Other microscopic hematuria; Z71.6 Tobacco abuse counseling; Z83.3 Family history of diabetes mellitus; Z79.899 Other long term (current) drug therapy; Z79.1 Long term (current) use of non-steroidal anti-inflammatories (NSAID)

== ENCOUNTER → 2021-07-13 | Outpatient (CLI) | payer OTHER ==
[2021-07-13 12:32] LABS: BILIRUBIN Negative (Negative); BLOOD Negative (Negative); CLARITY Clear (Clear); COLOR Yellow (Yellow); GLUCOSE Negative (Negative); KETONE Negative (Negative); LEUKO ESTERASE Negative (Negative); NITRITE Negative (Negative); SPECIFIC GRAVITY 1.015 (1.001-1.030)
[2021-07-13 12:47] LABS: MUCOUS TRACE
== END | disposition home or self-care (01) ==
LOC: LAB 00:22 → RESCLI 00:22
PROVIDERS: Internal Medicine; ATTEND Student in an Organized Health Care Education/Training Program
DX: N32.1 Vesicointestinal fistula (principal); K59.00 Constipation, unspecified; K57.90 Diverticulosis of intestine, part unspecified, without perforation or abscess without bleeding; F10.10 Alcohol abuse, uncomplicated; Z71.41 Alcohol abuse counseling and surveillance of alcoholic; Z72.0 Tobacco use; Z71.6 Tobacco abuse counseling; Z71.89 Other specified counseling; Z79.899 Other long term (current) drug therapy

== ENCOUNTER 2022-09-17 11:13 | Emergency (ER) | payer OTHER ==
[~2022-09-17] VITALS: Ht 187.9 cm; Wt 97.1 kg
[~2022-09-17 11:13] MED LIST changes: +AMOX-CLAV 875-1 EACH PO; +ONDANSETRON HYDR4 M1 PO
[2022-09-17 12:43] LABS: BASO % 0.5 % (0.0-1.0); EOS # 0.2 10*3/uL (0.0-0.4); EOS % 3.6 % (1.0-4.0); HEMATOCRIT 43.2 % (42.0-52.0); LYMPH # 1.2 10*3/uL (1.3-4.4); LYMPH % 27.5 % (27.0-41.0); MEAN CELL VOLUME 100.5 fl (80.0-94.0); MEAN CORPUSCULAR HGB 34.9 pg (27.0-31.0); MEAN CORPUSCULAR HGB CONC 34.7 g/dl (33.0-37.0); MEAN PLATELET VOLUME 8.8 fl (9.6-12.3); MONO # 0.4 10*3/uL (0.1-1.0); MONO % 8.4 % (3.0-9.0); NEUT # 2.6 10*3/uL (2.3-7.9); NEUT % 59.8 % (47.0-73.0); PLATELET COUNT AUTOMATED 192 10*3/uL (130-400); RED CELL DISTRI WIDTH 12.4 % (0-14.5); WHITE BLOOD COUNT 4.4 10*3/uL (4.8-10.8)
[2022-09-17 12:56] LABS: ACT PARTIAL THROMBO TIME 28.1 SECONDS (20.0-32.1)
[2022-09-17 12:59] LABS: ALKALINE PHOSPHATASE 103 U/L (45-117); BUN 9 mg/dl (7-24); CHLORIDE 112 mmol/L (98-107); CREATININE 0.88 mg/dL (0.70-1.30); LIPASE 102 U/L (73-393); POTASSIUM 4.3 mmol/L (3.5-5.1); SGOT/AST 54 IU/L (3-35); SGPT/ALT 56 U/L (12-78); SODIUM 144 mmol/L (136-145)
[2022-09-17 13:12] LABS: ETHYL ALCOHOL < 3.0 mg/dl (<3)
[2022-09-17] MEDS ORDERED: PRILOSEC20 M1 PO (15:14)
== END 2022-09-17 15:19 | disposition home or self-care (01) ==
LOC: ED 11:13
PROVIDERS: Emergency Medicine
DX: R07.9 Chest pain, unspecified (principal); R10.13 Epigastric pain; F17.210 Nicotine dependence, cigarettes, uncomplicated

== ENCOUNTER 2024-03-20 15:00 | Emergency (ER) | payer OTHER ==
[~2024-03-20] VITALS: Ht 185.4 cm; Wt 107.0 kg
[~2024-03-20 15:00] MED LIST changes: +PRILOSEC20 M1 PO
[2024-03-20 16:01] LABS: BASO % 0.3 % (0.0-1.0); EOS # 0.3 10*3/uL (0.0-0.4); EOS % 4.6 % (1.0-4.0); HEMATOCRIT 45.8 % (42.0-52.0); LYMPH # 1.4 10*3/uL (1.3-4.4); LYMPH % 20.6 % (27.0-41.0); MEAN CELL VOLUME 96.2 fl (80.0-94.0); MEAN CORPUSCULAR HGB 32.1 pg (27.0-31.0); MEAN CORPUSCULAR HGB CONC 33.4 g/dl (33.0-37.0); MEAN PLATELET VOLUME 9.1 fl (9.6-12.3); MONO # 0.6 10*3/uL (0.1-1.0); MONO % 8.5 % (3.0-9.0); NEUT # 4.3 10*3/uL (2.3-7.9); NEUT % 65.8 % (47.0-73.0); PLATELET COUNT AUTOMATED 192 10*3/uL (130-400); RED BLOOD COUNT 4.76 10*6/uL (4.50-5.90); RED CELL DISTRI WIDTH 15.9 % (0-14.5); WHITE BLOOD COUNT 6.6 10*3/uL (4.8-10.8)
[2024-03-20 16:12] LABS: ACT PARTIAL THROMBO TIME 29.1 SECONDS (20.0-32.1)
[2024-03-20 16:21] LABS: BUN 8 mg/dl (9-23); CHLORIDE 108 mmol/L (98-107); POTASSIUM 4.2 mmol/L (3.4-5.1)
[2024-03-20] MEDS ORDERED: CYCLOBENZAPRINE5 M3 PO (17:09)
[2024-03-20] MEDS ORDERED: CEPHALEXIN500 M1 PO (17:09)
[2024-03-20] MEDS ORDERED: Tdap Vaccine 0.5 ML SYR (Adult Vaccine) IM ONE (17:10)
== END 2024-03-20 17:38 | disposition home or self-care (01) ==
LOC: ED 15:00
PROVIDERS: Nurse Practitioner
DX: S30.0XXA Contusion of lower back and pelvis, initial encounter (principal); F12.90 Cannabis use, unspecified, uncomplicated; F17.210 Nicotine dependence, cigarettes, uncomplicated; X50.3XXA Overexertion from repetitive movements, initial encounter; Y93.89 Activity, other specified; Y92.89 Other specified places as the place of occurrence of the external cause; Y99.8 Other external cause status

== ENCOUNTER 2024-06-07 01:32 | Emergency (ER) | payer OTHER ==
[~2024-06-07] VITALS: Ht 177.8 cm; Wt 117.9 kg
[~2024-06-07 01:32] MED LIST changes: +CEPHALEXIN500 M1 PO; +CYCLOBENZAPRINE5 M3 PO
[2024-06-07 02:18] LABS: BASO # 0.1 10*3/uL (0.0-0.1); BASO % 0.7 % (0.0-1.0); EOS # 0.3 10*3/uL (0.0-0.4); EOS % 4.2 % (1.0-4.0); HEMATOCRIT 43.4 % (42.0-52.0); LYMPH # 2.4 10*3/uL (1.3-4.4); MEAN CELL VOLUME 100.7 fl (80.0-94.0); MEAN CORPUSCULAR HGB 34.3 pg (27.0-31.0); MEAN CORPUSCULAR HGB CONC 34.1 g/dl (33.0-37.0); MEAN PLATELET VOLUME 8.8 fl (9.6-12.3); MONO # 0.7 10*3/uL (0.1-1.0); MONO % 9.5 % (3.0-9.0); NEUT # 3.5 10*3/uL (2.3-7.9); NEUT % 49.9 % (47.0-73.0); PLATELET COUNT AUTOMATED 255 10*3/uL (130-400); RED BLOOD COUNT 4.31 10*6/uL (4.50-5.90); RED CELL DISTRI WIDTH 12.7 % (0-14.5)
[2024-06-07 02:39] LABS: ALKALINE PHOSPHATASE 106 U/L (46-116); CHLORIDE 104 mmol/L (98-107); ETHYL ALCOHOL 260.9 mg/dl (<3); POTASSIUM 3.1 mmol/L (3.4-5.1); SGPT/ALT 47 U/L (5-49); TOTAL PROTEIN 6.7 gm/dL (6.0-8.0)
[2024-06-07 02:40] LABS: BUN < 5 mg/dl (9-23)
[2024-06-07] MEDS ORDERED: POTASSIUM CHLORIDE 20 MEQ TAB PO ONE (03:30)
[2024-06-07 03:34] LABS: BILIRUBIN Negative (Negative); BLOOD Negative (Negative); CLARITY Clear (Clear); COLOR Yellow (Yellow); GLUCOSE Negative (Negative); KETONE Negative (Negative); LEUKO ESTERASE Negative (Negative); NITRITE Negative (Negative); PH 5.5 (4.5-8.0); SPECIFIC GRAVITY <= 1.005 (1.001-1.030); UROBILINOGEN 0.2 E.U./dl (0.0-1.0)
[2024-06-07 03:41] LABS: URINE AMPHETAMINES Negative (1000ng/ml); URINE BARBITURATES Negative (200ng/ml); URINE BENZODIAZEPINES Negative (200ng/ml); URINE CANNABINOIDS (THC) Negative (50ng/ml); URINE COCAINE Negative (300ng/ml); URINE METHADONE Negative (300ng/ml); URINE OPIATES Negative (300ng/ml); URINE PHENCYCLIDINE Negative (25ng/ml)
[2024-06-07 04:13] LABS: WBC 0-2 wbc/hpf (0-5)
[2024-06-07] MEDS ORDERED: Thiamine 100 MG TAB PO ONE (04:15)
[2024-06-07] MEDS ORDERED: Tdap Vaccine 0.5 ML SYR (Adult Vaccine) IM ONE (04:35)
== END 2024-06-07 04:47 ==
LOC: ED 01:32
PROVIDERS: Internal Medicine
DX: F10.129 Alcohol abuse with intoxication, unspecified (principal); E87.6 Hypokalemia; F17.210 Nicotine dependence, cigarettes, uncomplicated; Y90.8 Blood alcohol level of 240 mg/100 ml or more

== ENCOUNTER 2025-01-03 12:39 | Emergency (ER) | payer OTHER ==
[~2025-01-03] VITALS: Ht 187.9 cm; Wt 96.6 kg
[2025-01-03] MEDS ORDERED: Ondansetron Hydrochloride 4 MG/2 ML VIAL IV ONE (14:40)
[2025-01-03] MEDS ORDERED: SODIUM CHLORIDE 0.9% 1,000 ML IV ONE (14:40)
[2025-01-03] MEDS ORDERED: MORPHINE Sulfate 2 MG/ML SYR IV ONE (14:40)
[2025-01-03 15:03] LABS: BASO % 0.3 % (0.0-1.0); EOS # 0.1 10*3/uL (0.0-0.4); EOS % 3.7 % (1.0-4.0); HEMATOCRIT 43.8 % (42.0-52.0); MEAN CELL VOLUME 101.2 fl (80.0-94.0); MEAN CORPUSCULAR HGB 34.6 pg (27.0-31.0); MEAN CORPUSCULAR HGB CONC 34.2 g/dl (33.0-37.0); MEAN PLATELET VOLUME 9.1 fl (9.6-12.3); MONO # 0.5 10*3/uL (0.1-1.0); NEUT # 1.9 10*3/uL (2.3-7.9); NEUT % 53.1 % (47.0-73.0); PLATELET COUNT AUTOMATED 173 10*3/uL (130-400); RED BLOOD COUNT 4.33 10*6/uL (4.50-5.90); WHITE BLOOD COUNT 3.5 10*3/uL (4.8-10.8)
[2025-01-03 15:18] LABS: BUN 6 mg/dl (9-23); CHLORIDE 105 mmol/L (98-107); POTASSIUM 4.6 mmol/L (3.4-5.1)
[2025-01-03] MEDS ORDERED: AVPAK AZITHROM250 M1 PO (15:46)
== END 2025-01-03 15:50 | disposition home or self-care (01) ==
LOC: ED 12:39
PROVIDERS: Emergency Medicine
DX: R07.89 Other chest pain (principal); J40 Bronchitis, not specified as acute or chronic; Z20.822 Contact with and (suspected) exposure to COVID-19; I10 Essential (primary) hypertension; E78.5 Hyperlipidemia, unspecified; R51.9 Headache, unspecified; F17.210 Nicotine dependence, cigarettes, uncomplicated

== ENCOUNTER 2025-01-05 21:30 | Emergency (ER) | payer OTHER ==
[~2025-01-05] VITALS: Ht 187.9 cm; Wt 98.9 kg
[~2025-01-05 21:30] MED LIST changes: +AVPAK AZITHROM250 M1 PO
[2025-01-05] MEDS ORDERED: Acetaminophen/Oxycodone 5 MG/325 MG TABLET PO ONE (22:50)
[2025-01-05] MEDS ORDERED: SODIUM CHLORIDE 0.9% 1,000 ML IV ONE (23:05)
[2025-01-05] MEDS ORDERED: ceFAZolin sodium 2 GM in SYRINGE INFUSION 20 ML IV ONE (23:05)
[2025-01-05] MEDS ORDERED: Tdap Vaccine 0.5 ML SYR (Adult Vaccine) IM ONE (23:05)
[2025-01-05] MEDS ORDERED: Thiamine 200 MG/2 ML VIAL IV ONE (23:05)
[2025-01-05] MEDS ORDERED: ceFAZolin sodium 1 GM VIAL ONE (23:31)
== END 2025-01-06 00:29 | disposition short-term general hospital (02) ==
LOC: ED 21:30
DX: S66.922A Laceration of unspecified muscle, fascia and tendon at wrist and hand level, left hand, initial encounter (principal); F10.129 Alcohol abuse with intoxication, unspecified; F17.210 Nicotine dependence, cigarettes, uncomplicated; Z79.899 Other long term (current) drug therapy; W31.2XXA Contact with powered woodworking and forming machines, initial encounter; Y93.89 Activity, other specified; Y92.89 Other specified places as the place of occurrence of the external cause; Y99.8 Other external cause status; Y90.9 Presence of alcohol in blood, level not specified